=== PATIENT | male | born 1980 | race Caucasian/White ===

== ENCOUNTER 2025-07-02 12:19 | Emergency (ER) | payer MEDICAID ==
[~2025-07-02] VITALS: Ht 167.6 cm; Wt 84.1 kg
[2025-07-02 12:20] VITALS: TEMP 96.4
[2025-07-02] MEDS: ketorolac trometh 15mg/ml vial 15 MG/ML ML IM ONE (13:40)
--- NOTE | 2025-07-02 13:59 | Physician Documentation ---
History of Present Illness ~ Chief Complaint: Back Pain Stated Complaint: BACK PAIN Time Seen by MD: 13:00 Source: patient Mode of Arrival: POV Exam Limitations: no limitations HPI Patient presented secondary to lower back pain. He states that his pain started about one week ago. Described as a real bad muscle spasm in the back. He was seen at [facility] with the same complaints and underwent x-rays and has been resting taking ibuprofen intermittently. Continues to have pain. Therefore, presented to the emergency department for a 2nd opinion. States pain is 4/10 at rest and up to 9/10 with activity. Pain is located in the left lower back and shooting down his left leg. Denies incontinence of bowel or bladder. No urinary retention. No paresthesias around the perianal area reported when asked. Medication Reconciliation Allergies: Coded Allergies: No Known Allergies (Unverified , 07/02/25) Scheduled PRN Baclofen (Baclofen), 1 TAB PO Q8H PRN for muscle spasms Past Medical History Past Medical History: No Pertinent History Past Surgical History: no surgical history Drug Use: none Lives In: Home Occupation: employed Review of Systems ROS Patient complaining of pain to the left side of his back. No spinal tenderness. He has limited range of motion. No loss of control of bowels or bladder. No fevers or chills. Was asked, but otherwise denies review of systems. Physical Exam Physical Exam Vital Signs: Temperature: 96.4, Source: Temporal, Heart Rate: 70, Respiratory Rate: 18, BP: 149/109, Pulse Oximetry: 98, Weight: 84.090 Oxygen Flow Rate: 0 Pulse Oximetry Reflects: adequate oxygenation General Appearance: alert, WD/WN Neck: non-tender, full range of motion Respiratory: lungs clear, normal breath sounds Chest: no accessory muscle use, chest non-tender Cardiovascular: normal peripheral pulses, regular rate, rhythm BacK: normal inspection, no CVA tenderness, decreased range of motion, muscle spasm Back Pain location left lower back. No spinal tenderness. ROM limited by pain. Progress Results/Orders Results/Orders Completed Orders - MARIA ELENA KERN NP Ketorolac Trometh 15mg/Ml Vial (Toradol (07/02/25 13:20) Baclofen Tablet (Lioresal Tablet) (07/02/25 13:20) Medications Received in ER Medications (Trade) Dose Ordered Sig/Janneth Route PRN Reason Start Time Stop Time Status Last Admin Dose Admin (Toradol injection) 15 mg ONCE ONCE IM 07/02/25 13:20 07/02/25 13:21 DC 07/02/25 13:40 15 MG (Lioresal tablet) 10 mg ONCE ONCE PO 07/02/25 13:20 07/02/25 13:21 DC 07/02/25 13:40 10 MG Vital Signs 07/02/25 07/02/25 07/02/25 07/02/25 12:20 12:43 12:50 13:40 Temp 96.4 Pulse 72 70 Resp 16 16 16 18 B/P (MAP) 162/98 149/109 (122) Pulse Ox 98 98 O2 Flow Rate 0 07/02/25 14:31 Pulse 61 Resp 15 B/P (MAP) 162/110 Pulse Ox 98 Medical Decision Making Findings Patient presents for further evaluation of left lower back pain onset about a week ago. He was seen by emergency department at [facility] and received imaging with x-rays. Was told that there was no fractures and he was discharged with instructions to take ibuprofen. He has no injury that he can pinpoint but now has limited range of motion with pain located around the left lower back. He states initially it felt like he had a muscle spasm. Now with limited range of motion. No high-risk features such as paresthesias around the perianal area. No loss of control of the bowels or bladder and no urinary retention. He has limited range of motion on exam. He is able to walk with somewhat of a limping gait. Able to get on his toes and on his heels with some limitation by balance and pain. He was given Toradol and a muscle relaxer and reported some relief from his symptoms. He was encouraged to go home and rest with ice/heat alternating. Also encouraged gentle back exercises/stretching. He will take the muscle relaxer as prescribed. Educated that he can not drive while taking this. At this time there is no evidence of acute neurologic emergency. Warning signs were reviewed. He will follow up with his primary care provider. He states he does have a primary care provider appointment coming up. On course of his exam he was noted to have high blood pressure which may be seco ndary to pain. Essential hypertension was considered. Given his elevated blood pressure he was encouraged to follow up. Departure Time of Disposition: 13:58 Impression: Primary Impression: Back problem Additional Impression: Low back pain Qualified Codes: M54.42 - Lumbago with sciatica, left side Discharge Instructions: Back Exercises Additional Instructions: Continue to take your ibuprofen for pain. You were given a dose of Toradol which is a nonsteroidal anti-inflammatory here in the emergency department. Given this please do not take more ibuprofen for the next 12 hours. You may take baclofen for muscle spasms. Recommend rest and back exercises. Return for new or worsening symptoms. There are monitor your blood pressures was greater than 130/80. Recommend follow up with primary care provider. Referrals: NO PRIMARY CARE PROVIDER (PCP) Prescriptions Baclofen (Baclofen) 10 Mg Tablet 1 TAB PO Q8H PRN for muscle spasms for 5 Days, #15 TAB 0 Refills Prov: MARIA ELENA KERN NP 07/02/25 Education Educated: Patient Educated regarding: diagnosis, treatment, need for follow up Signature Scribe Signature: No scribe Attestation: The note accurately reflects work and decisions made by me.Maria Elena Kern - NICK 07/02/25 19:22 This note was created with the assistance of voice recognition software whereby errors in grammar, syntax, and/or spelling may have occurred despite active proofreading efforts by the author. Please do not hesitate to contact the provider for clarification or for questions regarding the content of this document. MARIA ELENA KERN NP Jul 02, 2025 13:59
[2025-07-02] MEDS ORDERED: BACL10TA2 PO (14:00)
[2025-07-02 14:31] VITALS: BP 162/110; PULSE 61; RESP 15; O2SAT 98
== END 2025-07-02 14:36 | disposition home or self-care (01) ==
LOC: ER 12:20
DX: M54.50 Low back pain, unspecified (principal)
CPT/HCPCS: 96372; 99283; J1885